=== PATIENT | female | born 1965 | race Caucasian/White ===

== ENCOUNTER 2021-03-15 16:12 | Outpatient (CLI) | payer OTHER, SELFPAY ==
--- NOTE | ~2021-03-15 | XR_ITS ---
EXAMINATION: XR knee RT 3V DATE: 03/15/2021 16:36 INDICATION: Right knee pain. TECHNIQUE: 3 views of right knee were obtained. COMPARISON: None. FINDINGS: Bone alignment is normal. No fracture. There is mild tricompartmental osteoarthritis contra st by marginal osteophytes. No knee joint effusion. IMPRESSION: 1. Mild right knee osteoarthritis. Reviewed, dictated and finalized at location A.
== END 2021-03-15 16:13 | disposition home or self-care (01) ==
PROVIDERS: PCP Internal Medicine; Visit Provider Clinical Nurse Specialist
DX: M17.11 Unilateral primary osteoarthritis, right knee (principal)
CPT/HCPCS: 73562

== ENCOUNTER 2021-04-08 10:32 | Outpatient (CLI) | payer OTHER, SELFPAY ==
[2021-04-08 11:15] LABS: Basophils Absolute Auto 0.1 K/mm3 (0.0-0.1); Basophils Percent Auto 0.7 % (0.2-1.2); Eosinophils Absolute Auto 0.4 K/mm3 (0-0.3); Eosinophils Percent Auto 4.8 % (0-4.4); Hematocrit 43.6 % (37.0-47.0); Hemoglobin 14.2 g/dL (12.0-15.0); Immature Granulocyte Absolute 0.02 K/mm3 (0.00-0.031); Immature Granulocyte Percent A 0.3 % (0-0.5); Lymphocytes Absolute Auto 2.87 K/mm3 (0.9-3.2); Mean Corpuscular HGB Conc 32.6 g/dl (32-36); Mean Corpuscular Volume 85.8 fl (80-100); Monocytes Absolute Auto 0.5 K/mm3 (0.1-0.6); Monocytes Percent Auto 6.8 % (2.6-8.5); Neutrophils Absolute Auto 3.6 K/mm3 (1.3-6.7); Neutrophils Percent Auto 48.4 % (45.5-73.1); Platelet Count Result 189 k/mm3 (150-375); Red Blood Count 5.08 M/mm3 (4.2-5.4); Red Cell Distribution Width 13.7 % (11.5-14.5); White Blood Count 7.4 K/mm3 (4.5-10.0)
[2021-04-08 11:26] LABS: Alanine Aminotransferase 23 U/L (4-35); Albumin Level 4.1 g/dL (3.5-5.1); Alkaline Phosphatase 76 U/L (38-126); Anion Gap 4 mmol/L (8-16); Aspartate Amino Transferase 23 U/L (14-36); Bilirubin,Total 0.4 mg/dL (0.2-1.3); Blood Urea Nitrogen 15 mg/dL (7-17); Calcium 9.3 mg/dL (8.4-10.2); Carbon Dioxide 30 mmol/L (22-30); Chloride 106 mmol/L (98-107); Cholesterol 203 mg/dL (0-200); Estimated Glomerular Filt Rate > 60; Glucose 108 mg/dL (65-105); HDL Direct 53 mg/dL; Potassium 4.2 mmol/L (3.4-5.0); Sodium 140 mmol/L (137-145); Triglycerides 71 mg/dL (<150)
[2021-04-08 11:37] LABS: LDL Cholesterol Direct 105 mg/dL
[2021-04-08 11:56] LABS: Thyroid Stimulating Hormone 0.612 uIU/mL (0.465-4.680)
[2021-04-08 12:10] LABS: Vitamin D 25 Hydroxy 32.6 ng/mL
== END 2021-04-08 10:33 | disposition home or self-care (01) ==
PROVIDERS: PCP Internal Medicine; Visit Provider Clinical Nurse Specialist
DX: R53.83 Other fatigue (principal); I10 Essential (primary) hypertension; E55.9 Vitamin D deficiency, unspecified
CPT/HCPCS: 36415; 80053; 80061; 82306; 84443; 85025

== ENCOUNTER 2021-04-18 09:49 | Outpatient (CLI) | payer OTHER, SELFPAY ==
--- NOTE | 2021-04-21 12:47 | WPDHOLTEREM ---
Holter/Event Monitor Holter/Event Monitor Date of procedure: 04/18/21 Procedure Type: 48 hour holter monitor Indications: Palpitations Conclusion: 1. 48 hour holter monitor on 04/18/21. 2. Predominant rhythm is sinus rhythm. HR range 56-135 bpm; average HR 72 bpm. 3. There are 10 premature supraventricular complexes and 1 supraventricular couplet. No supraventricular tachycardia. 4. There are 3 premature ventricular complexes and 1 ventricular triplet. There is an episode of ventricular tachycardia at 00:33 at 129 bpm lasting 4 beats then 5 beats by a sinus beat. 5. No sinoatrial or atrioventricular blocks. No significant pauses greater than 2 seconds. 6. No symptoms available for correlation.
== END 2021-04-18 09:50 | disposition home or self-care (01) ==
PROVIDERS: PCP Internal Medicine; Visit Provider Clinical Nurse Specialist
DX: R00.2 Palpitations (principal)
CPT/HCPCS: 93225; 93226

== ENCOUNTER 2021-04-25 15:39 | Outpatient (CLI) | payer OTHER, SELFPAY | END 2021-04-25 15:40 | disposition home or self-care (01) | LOC: ANHLAB 15:41 | PROVIDERS: PCP Internal Medicine; Visit Provider Clinical Nurse Specialist | DX: I47.2 Ventricular tachycardia (principal) | CPT/HCPCS: 36415; 83735 ==

== ENCOUNTER 2021-05-27 08:52 | Outpatient (CLI) | payer OTHER, SELFPAY ==
--- NOTE | ~2021-05-27 | MM_ITS ---
EXAMINATION: MM screening claudia BI w hiram HISTORY: Screening TECHNIQUE: Craniocaudal and mediolateral oblique 3-D tomosynthesis images were obtained and synthetic 2-D images were generated. CAD analysis was submitted and interpreted. COMPARISON: No prior mammogram is available for comparison at this institution. BREAST PARENCHYMAL COMPOSITION: There are scattered areas of fibroglandular density. FINDINGS: There is a focal mass in the lower central aspect of the left breast posteriorly. There are no suspicious masses, calcifications or architectural distortion in the right breast to suggest daisy gnancy. IMPRESSION: 1. Left breast mass posteriorly, lower central. 2. Additional mammographic views and possible breast ultrasound are recommended. BI-RADS Category 0: Incomplete: Needs additional imaging evaluation. Reviewed, dictated and finalized at location A. IMPRESSION: 1. Left breast mass posteriorly, lower central. 2. Additional mammographic views and possible breast ultrasound are recommended . BI-RADS Category 0: Incomplete: Needs additional imaging evaluation.
--- NOTE | ~2021-05-27 | DEXA_ITS ---
Bone Density Report Name: Jackie Ceja Age: 56 Sex: Female Ethnicity: White Date of : 1965 Indication: postmenopausal; cancer; Referring Provider: Senait Prieto Study: Bone densitometry was performed. Exam Date: May 27, 2021 Accession number: [id number] Bone Density: Region BMD T-score Z-score Classification AP Spine (L1-L4) 1.210 1.5 2.8 Normal Femoral Neck (Left) 0.897 0.4 1.6 Normal Total Hip (Left) 1.135 1.6 2.4 Normal Total Hip Bilateral Avg 1.126 1.5 2.4 Normal Femoral Neck (Right) 0.937 0.8 2.0 Normal Total Hip (Right) 1.116 1.4 2.3 Normal World Health Organization criteria for BMD impression classify patients as: Normal (T-score at or above -1.0), Osteopenia (T-score between -1.0 and -2.5), or Osteoporosis (T-score at or below -2.5). 10-year Fracture Risk: FRAX not reported because: All T-scores for Spine Total, Hip Total, Femoral Neck at or above -1.0 Clinical Information Provided by Patient: Has used the following medications: HRT (i.e. estrogen/hormone therapy) Has the following medical conditions: Cancer Patient maximum height was 61 Menopause Age: 44 No regular weight bearing exercise Onset of menses at age 9 Number of children 3 Impression: The patient has normal bone mass. Discussion: BONE DENSITY IS ABOVE THE MINIMUM DESIRABLE LEVEL AT ALL SKELETAL SITES TESTED. This patient?s bone mineral density is above the minimum desirable level (T-score -1.0 or better) at all sites measured. The patient should follow a healthful lifestyle (good nutrition with adequate calcium and vitamin D, and appropriate weight-bearing exercise). Follow-Up: Consider repeating this study in 5 years or sooner if there is some new clinical indication. Reported by: SU on 05/27/2021 9:17:00 AM. Reviewed, dictated and finalized at location ABebe YOST
== END 2021-05-27 08:53 | disposition home or self-care (01) ==
LOC: ANHIMG 08:53
PROVIDERS: PCP Internal Medicine; Visit Provider Clinical Nurse Specialist
DX: Z12.31 Encounter for screening mammogram for malignant neoplasm of breast (principal); Z78.0 Asymptomatic menopausal state; R92.8 Other abnormal and inconclusive findings on diagnostic imaging of breast
CPT/HCPCS: 77063; 77067; 77080

== ENCOUNTER 2021-06-14 13:39 | Outpatient (CLI) | payer OTHER, SELFPAY ==
[2021-06-14 14:05] LABS: Basophils Absolute Auto 0.1 K/mm3 (0.0-0.1); Basophils Percent Auto 0.6 % (0.2-1.2); Eosinophils Absolute Auto 0.3 K/mm3 (0-0.3); Eosinophils Percent Auto 3.8 % (0-4.4); Hematocrit 43.2 % (37.0-47.0); Hemoglobin 13.7 g/dL (12.0-15.0); Immature Granulocyte Absolute 0.05 K/mm3 (0.00-0.031); Immature Granulocyte Percent A 0.6 % (0-0.5); Lymphocytes Absolute Auto 2.94 K/mm3 (0.9-3.2); Lymphocytes Percent Auto 36.9 % (18.3-44.2); Mean Corpuscular HGB Conc 31.7 g/dl (32-36); Mean Corpuscular Hemoglobin 28.3 pg (26-34); Mean Corpuscular Volume 89.3 fl (80-100); Mean Platelet Volume 10.1 fl (7.4-10.4); Monocytes Absolute Auto 0.6 K/mm3 (0.1-0.6); Monocytes Percent Auto 7.8 % (2.6-8.5); Neutrophils Percent Auto 50.3 % (45.5-73.1); Platelet Count Result 205 k/mm3 (150-375); Red Blood Count 4.84 M/mm3 (4.2-5.4); Red Cell Distribution Width 14.4 % (11.5-14.5)
== END 2021-06-14 13:40 | disposition home or self-care (01) ==
LOC: ANHSURGERY 13:43
PROVIDERS: PCP Internal Medicine; Visit Provider Obstetrics & Gynecology
DX: N85.2 Hypertrophy of uterus (principal); Z01.818 Encounter for other preprocedural examination
CPT/HCPCS: 36415; 85025; 86850; 86900; 86901

== ENCOUNTER 2021-06-16 00:42 | Day surgery (SDC) | payer OTHER, SELFPAY ==
[2021-06-14 09:12] VITALS: BMI 43.4
--- NOTE | 2021-06-14 11:43 | PM.IMHP ---
H&P: HPI History of Present Illness Date/Time: 06/14/21 11:43 56-year-old multiparous patient admitted for robotic total vaginal hysterectomy bilateral salpingo-oophorectomy. She has pelvic pain enlarged uterus and dyspareunia with known fibroids. Risks and benefits reviewed including but not exclusive of , aspiration pneumonia, bleeding, transfusion, perforation injury to bowel, bladder, ureters, or other internal organs need for open laparotomy. She received the ACOG handout for hysterectomy as well as the [facility] handout. Chief Complaint: enlarged uterus and pelvic pain Review of Systems Review of Systems: All systems reviewed & are unremarkable except as noted in HPI and below PMFSH Past Medical History Medical History Colon cancer HTN (hypertension) Surgical History Surgical History H/O section x2 History of appendectomy History of colon resection Hx of tonsillectomy Family History Family History Mother Heart disease Father Dementia Alzheimer disease Social History Social History Smoking status: Never smoker Alcohol intake: never Substance use type: does not use Spiritual care concerns: No Meds Home Medications and Allergies Home Medications Medication Instructions Recorded Confirmed Type estradiol-norethindrone acet 1 1 tablet PO DAILY 05/08/21 06/14/21 History mg-0.5 mg tablet metoprolol succinate 25 mg 25 mg PO DAILY 05/08/21 06/14/21 History tablet,extended release 24 hr sertraline 50 mg tablet 50 mg PO DAILY #90 tablet 05/08/21 06/14/21 Rx Allergies Allergy/AdvReac Type Severity Reaction Status Date / Time No Known Allergies Allergy Unverified 03/16/16 15:42 Exam Const: General: no acute distress Eyes: General: appearance normal, both eyes and all related structures Neck: Neck: supple and no JVD Thyroid: thyroid normal Resp: Effort & Inspection: normal respiratory effort Auscultation: clear to auscultation bilaterally Cardio: Rate: regular rate Rhythm: regular rhythm GI: Inspection: non-distended GI Palp: Yes Soft to palpation, No Tenderness to palpation present (GI) and No Guarding due to palpation present (GI) Auscultation: normal bowel sounds : External Female Exam: normal external appearance Speculum Exam - Vagina: normal appearance of the vagina Speculum Exam - Cervix: normal appearance of the cervix Bimanual exam- vagina & uterus: enlarged Skin: General skin exam: no rashes or lesions noted Extrem: General: normal to inspection and no edema Psych: Mental Status: mental status grossly normal Affect: normal affect Assessment and Plan Additional Plan impression: Enlarged uterus and pelvic pain Plan: Robotic total vaginal hysterectomy and bilateral salpingo-oophorectomy
[2021-06-16] VITALS (12 sets, daily range): BP systolic 95–126; BP diastolic 61–85; PULSE 52–68; RESP 10–16; TEMP 35.9–36.4; O2SAT 91–99; BMI 41.4
--- NOTE | 2021-06-16 06:00 | WPDHPUPDATE1 ---
History and Physical Update Update Date/Time: 06/16/21 06:00 History and Physical has been reviewed, including an updated exam of the patient. There are NO changes in the patient's condition. Risks, benefits, and alternatives have been discussed and questions answered. Patient agrees to proceed with procedure.
[2021-06-16] MEDS: ACETAMINOPHEN 500 MG TABLET 1000 MG PO (08:32)
[2021-06-16] MEDS: LACTATED RINGERS 1,000 ML 30 ML IV CONT ×2 (08:32→14:24)
[2021-06-16] MEDS: KETOROLAC 15 MG/ML VIAL (*BKC) IV PUSH (08:34)
--- NOTE | 2021-06-16 09:58 | P.PNAN_ITS ---
Anes - Initial Pre Proc Eval Procedure: Operation Date: 06/16/21 09:30 Proposed Procedures p Robotic Assisted Total Vaginal Hysterectomy with Bilateral Salpingo- Oophorectomy - Boubacar Perla MD Date/Time: 06/16/21 09:58 Surgeon: Boubacar Perla MD Pre Op Diagnosis: enlarge uterus, pelvic pain, fibroids Patient Data Age: 56 Gender: F Height: 1.55 m Weight: 99.55 kg Last Vital Signs Temp 97.4 F L 06/16/21 08:17 Pulse 66 06/16/21 08:17 Resp 16 06/16/21 08:17 BP 126/77 06/16/21 08:17 Pulse Ox 99 06/16/21 08:17 Allergies Allergy/AdvReac Type Severity Reaction Status Date / Time No Known Allergies Allergy Unverified 03/16/16 15:42 Home Medications Medication Instructions Recorded Confirmed Type estradiol-norethindrone acet 1 1 tablet PO DAILY 05/08/21 06/14/21 History mg-0.5 mg tablet metoprolol succinate 25 mg 25 mg PO DAILY 05/08/21 06/14/21 History tablet,extended release 24 hr sertraline 50 mg tablet 50 mg PO DAILY #90 tablet 05/08/21 06/14/21 Rx hydrocodone-acetaminophen 1 tablet PO Q4H PRN #30 tablet 06/16/21 Rx Patient hx anesthesia problems: none Family hx anesthesia problems: none PMFSH Past Medical History Medical History Colon cancer HTN (hypertension) Surgical History Surgical History H/O section x2 History of appendectomy History of colon resection Hx of tonsillectomy Family History Family History Mother Heart disease Father Dementia Alzheimer disease Social History Social History Smoking status: Never smoker Alcohol intake: never Substance use type: does not use Living arrangements: with family Spiritual care concerns: No Anes - Eval Final PreProcedure Day of Procedure 06/16/21 09:58 Patient weight: morbidly obese Heart: regular rate and rhythm Lungs: clear to auscultation Airway: Mallampati scale class II Neurological: alert and oriented Last oral intake: >/= 8 hours ASA classification: III Emergent: no Anesthetic plan: proceed Anesthesia type and monitoring: general ETT and standard monitoring Informed Consent: The patient's anesthetic plan and its attendant risks and benefits were discussed with the patient/family/POA. Questions were solicited and answers provided to the satisfaction of the patient/family/POA.
[2021-06-16] MEDS: ceFAZolin 2 GM/D5W 50 ML 2 GM/50 ML BAG IVPB (10:08)
[2021-06-16] MEDS: HEMOSTATIC MATRIX (SURGIFLO with THROMBIN) KIT 2 KIT XX (13:18)
--- NOTE | 2021-06-16 13:37 | W.PM.PROC2 ---
Procedure Note - Detailed Date of Procedure 06/16/21 Pre-op Diagnosis enlarge uterus, pelvic pain, fibroids Post-op Diagnosis same Procedure Performed Robotic total vaginal hysterectomy and salpingo-oophorectomy Surgeon Boubacar Perla MD Anesthesia general Indications this is a 56 year female with large fibroid uterus and pain she had a history of colon resection with expected adhesions. Findings Markedly enlarged uterus with multiple adhesions including small bowel to the anterior abdominal wall colon to the posterior surface of the uterus and left ovary and tube. Description of Procedure the patient was prepped draped in the normal sterile fashion placed in the dorsal lithotomy position. Excellent general trach anesthesia weighted speculum placed in posterior fornix vagina. Anterior lip of the cervix grasped with a single-tooth tenaculum and the uterus sounded to 11cm serial dilatation with fragmented dilators performed followed by passes of the 10. LEIGH ANN and 3. Cold cup. A 16 [place] catheter was placed in the gloves were changed. An a supraumbilical incision made the Veress needle passed in the abdomen. The abdomen filled with CO2 gas [id number]. The 8mm trocar advanced in the abdomen downside visualized no injury seen. Multiple adhesions were seen anteriorly left and right lateral quadrant incisions made 8mm trocars advanced under direct visualization a right upper quadrant incision made the 10mm trocar advanced under direct visualization the robot was docked Attention was turned to the console. Multiple adhesions were seen using sharp dissection with monopolar and bipolar cautery the colon and small bowel that was adherent to the anterior abdominal wall the posterior surface of the uterus and cervix and the left ovary and tube were sharply dissected carefully avoiding injury to the overlying bowel. Once uterus and ovaries could be seen the left fallopian tube was grasped and this was cut and removed. The left round ligament was grasped, burned, cut anteriorly a bladder flap was formed. Sharp dissection was used by layer by layer secondary previous surgery with the bladder markedly adherent to the uterine surface. This was brought to the opposite round ligament which was clamped, burned, cut. Next the left infundibulopelvic structure was skeletonized remove the ovary and it was very small and was clamped, burned, cut and brought to the level of previously cut round ligament. The infundibulopelvic structure on the right was skeletonized. This was clamped, burned, cut and brought to the level of previously cut round ligament. Multiple adhesions were seen in the left cardinal broad ligaments were serially skeletonized down lateral edge of the uterus relieving adhesions clamping cutting burning until the uterine vessels could be seen on left these were large and tortuous in individually clamped, burned, cut. In like fashion the cardinal and broad ligaments on the left were serially skeletonized clamped, burned, cut and brought down lateral edge of the cervix until the uterine vessels could be seen on the right these were serially clamped, burned, cut. Once it appeared there was hemostasis a colpotomy incision was made in the cervix uterus ovaries and tubes removed through the vagina. The a portion of the ovary was suspected to be in the abdomen was cervix for some time but could not be located. The vagina was then closed with continuous running 0V lock from lateral edge lateral edge. There was a fair amount of bloody surface and surgeon seal was placed over the top with hemostasis. The vagina was was noted to have some small amount of bleeding and expects Thatch was undertaken there after undocking the robot. A small lateral laceration was noted and it was superficial and was cauterized and then for safe safety sake packing was placed. The instruments removed. Incisions were closed with 4 Monocryl and glue. The patient went to recovery in satisf
--- NOTE | 2021-06-16 13:48 | SUR.OPER ---
noted vaginal bleeding Dr Dong called to OR to assess 13:49.
--- NOTE | 2021-06-16 13:49 | SUR.OPER ---
1 full length vaginal packing soaked in red bright blood and removed (3 yards)
--- NOTE | 2021-06-16 14:34 | PM.GYNPNOP ---
MEMORY CARE PROGRAM DIRECTOR - A/P Postoperative Procedures: Procedures Operation Date: 06/16/21 09:30 Actual Procedure Side Surgeon p Robotic Assisted Total Vaginal Hysterectomy with Bilateral Salpingo-[id number],Extensive Adhesolysis Boubacar Perla MD s vaginal cuff repair Not Applicable Boubacar Perla MD Time Spent With Patient Time: Total time spent is greater than 50% in coordination of care (as documented) at patient's floor/unit and/or counseling patient: Time with patient: less than 15 minutes MEMORY CARE PROGRAM DIRECTOR- PN:Subj Post-Op Subjective Date/time seen: 06/16/21 14:34 placed two figure 8 sutures in ruq of vagina as a small tear was noted MEMORY CARE PROGRAM DIRECTOR - PN: Obj Data Vital Signs Vital Signs: Vital Signs - 24 hr 06/16/21 08:17 Temperature 97.4 F L Pulse Rate 66 Respiratory Rate 16 Blood Pressure 126/77 Pulse Oximetry 99 Intake/Output Intake/Output: Intake & Output 06/13/21 06/14/21 06/15/21 06/16/21 23:59 23:59 23:59 23:59 Intake Total 50 Balance 50 Meds/Results Medications: Active Medications Generic Name Dose Route Start Last Admin Trade Name Freq PRN Reason Stop Dose Admin Fentanyl Citrate 25 mcg 06/16/21 10:02 Fentanyl Citrate Inj (*Crx) 100 Mcg/2 Ml Vial IV PUSH Q2M PRN Pain Hydromorphone HCl 0.25 mg 06/16/21 10:02 Hydromorphone Hcl Inj (*Crx) 1 Mg/Ml Syr IV PUSH Q5M PRN Pain Lactated Ringer's 1,000 mls @ 30 mls/hr 06/15/21 14:55 06/16/21 08:32 Lr - Lactated Ringers Iv IV CONT 30 mls/hr .Q24H TONI Administration Lactated Ringer's 1,000 mls @ 30 mls/hr 06/16/21 10:05 Lr - Lactated Ringers Iv IV CONT .Q24H TONI Ondansetron HCl 4 mg 06/16/21 10:02 Ondansetron Inj 4 Mg/2 Ml Vial IV PUSH ONCE PRN Nausea
--- NOTE | 2021-06-16 14:48 | SUR.OPER ---
EBL TOTAL 350ML.
[2021-06-16] MEDS: DEXTROSE 5%/LACTATED RINGERS 1,000 ML 125 ML IV CONT (16:37)
[2021-06-16] MEDS: KETOROLAC 30 MG/ML VIAL (*BKC) IV PUSH (16:37)
--- NOTE | 2021-06-16 20:15 | PC.NURSE ---
Dr. Bandar Johnston called to check in on the patient and the pharmacy had ordered a creatinine EGFR lab to be drawn, per MD the lab is not needed. RN to cancel the order.
--- NOTE | 2021-06-16 20:48 | PC.NURSE ---
1618-This patient, Jackie Ceja, was admitted to OB 2nd Floor Room 292-00. Patient/family oriented to hospital policies and general routines including ID bracelet, bed and alarms, visiting hours, pain management, procedures, bathroom and other care routines, personal items, smoking policy, room service/diet, and visiting hours. Information on how to activate the Rapid Response Team has been discussed. Patient/Family are encouraged to report perceived risks to care and to ask questions if they do not understand what they are told or what they should do.
[2021-06-16] MEDS: IBUPROFEN 600 MG TABLET PO (23:11)
[2021-06-16] MEDS: HYDROcodone/acetaminophen (*CRX) 5-325 MG TABLET 1 TAB PO (23:12)
[2021-06-17] MEDS: HYDROcodone/acetaminophen (*CRX) 10-325 MG TABLET 1 TAB PO ×3 (02:31→11:37)
[2021-06-17] MEDS: SIMETHICONE 80 MG TAB.CHEW PO (02:31)
[2021-06-17 05:00] VITALS: BP 104/54; PULSE 80; RESP 16; TEMP 36.6; O2SAT 97
[2021-06-17] MEDS: IBUPROFEN 600 MG TABLET PO ×2 (05:01→11:37)
[2021-06-17 06:07] LABS: Basophils Percent Auto 0.2 % (0.2-1.2); Eosinophils Percent Auto 0.1 % (0-4.4); Hematocrit 32.4 % (37.0-47.0); Hemoglobin 10.2 g/dL (12.0-15.0); Immature Granulocyte Absolute 0.05 K/mm3 (0.00-0.031); Immature Granulocyte Percent A 0.4 % (0-0.5); Lymphocytes Absolute Auto 2.78 K/mm3 (0.9-3.2); Mean Corpuscular HGB Conc 31.5 g/dl (32-36); Mean Corpuscular Hemoglobin 28.3 pg (26-34); Mean Corpuscular Volume 89.8 fl (80-100); Mean Platelet Volume 10.5 fl (7.4-10.4); Monocytes Percent Auto 7.1 % (2.6-8.5); Neutrophils Percent Auto 72.2 % (45.5-73.1); Platelet Count Result 194 k/mm3 (150-375); Red Blood Count 3.61 M/mm3 (4.2-5.4); Red Cell Distribution Width 14.6 % (11.5-14.5); White Blood Count 13.9 K/mm3 (4.5-10.0)
[2021-06-17 08:45] VITALS: BP 98/68; PULSE 74; RESP 20; TEMP 37.1; O2SAT 94
--- NOTE | 2021-06-17 10:31 | PM.GYNPNOP ---
RURAL HEALTH CONSULTANT - A/P Postoperative Procedures: Procedures Operation Date: 06/16/21 09:30 Actual Procedure Side Surgeon p Robotic Assisted Total Vaginal Hysterectomy with Bilateral Salpingo-[id number],Extensive Adhesolysis Boubacar Perla MD s vaginal cuff repair Not Applicable Boubacar Perla MD A: POD#1, doing well. P: Home to f/u 2 weeks. Time Spent With Patient Time with patient: less than 15 minutes RURAL HEALTH CONSULTANT- PN:Subj Post-Op Subjective Date/time seen: 06/17/21 10:31 Interval history: Pain OK. Tolerating diet. Would like to go home. Exam Narrative: Exam Narrative: AVSS I/O OK ABD soft, nontender. Incisions c/d/i. EXT nontender Pelvic: Packing removed. Hemostasis excellent. RURAL HEALTH CONSULTANT - PN: Obj Data Vital Signs Vital Signs: Vital Signs - 24 hr 06/16/21 14:24 06/16/21 14:35 06/16/21 14:49 Temperature 36.4 C L Pulse Rate 52 L 55 L 55 L Respiratory Rate 16 14 14 Blood Pressure 109/85 105/67 98/78 L Pulse Oximetry 91 97 97 06/16/21 15:00 06/16/21 15:16 06/16/21 15:30 Temperature Pulse Rate 53 L 55 L 56 L Respiratory Rate 11 L 10 L 13 Blood Pressure 102/61 103/67 95/61 L Pulse Oximetry 95 94 93 06/16/21 15:45 06/16/21 16:25 06/16/21 17:00 Temperature 35.9 C L Pulse Rate 55 L 55 L 55 L Respiratory Rate 12 16 16 Blood Pressure 106/72 107/61 Pulse Oximetry 96 97 97 06/16/21 20:20 06/16/21 23:10 06/17/21 05:00 Temperature 36.1 C L 36.4 C 36.6 C Pulse Rate 59 L 68 80 Respiratory Rate 16 16 16 Blood Pressure 99/63 L 112/73 104/54 L Pulse Oximetry 97 96 97 06/17/21 08:45 Temperature 37.1 C Pulse Rate 74 Respiratory Rate 20 Blood Pressure 98/68 L Pulse Oximetry 94 Intake/Output Intake/Output: Intake & Output 06/14/21 06/15/21 06/16/21 06/17/21 23:59 23:59 23:59 23:59 Intake Total 1750 500 Output Total 590 600 Balance 1160 -100 Meds/Results Medications: Active Medications Generic Name Dose Route Start Last Admin Trade Name Freq PRN Reason Stop Dose Admin Hydrocodone Bitart/Acetaminophen 1 tab 06/16/21 16:06 06/16/21 23:12 Hydrocodone/Acetaminophen (*Crx) 5-325 Mg Tablet PO 1 tab Q3H PRN Administration Pain Rated 5 or Less Hydrocodone Bitart/Acetaminophen 1 tab 06/16/21 16:06 06/17/21 05:02 Hydrocodone/Acetaminophen (*Crx) 10-325 Mg Tablet PO 1 tab Q3H PRN Administration Pain Rated 6 or Greater Docusate Sodium 100 mg 06/16/21 17:00 06/16/21 16:38 Docusate Sodium 100 Mg Capsule PO Not Given BID TONI Enoxaparin Sodium 40 mg 06/17/21 09:00 Enoxaparin 40 Mg/0.4 Ml Syringe SUB-Q DAILY TONI Dextrose/Lactated Ringer's 1,000 mls @ 125 mls/hr 06/16/21 16:06 06/16/21 23:11 Dextrose 5%/Lactated Ringers IV CONT Infused .Q8H TONI Infusion Ibuprofen 600 mg 06/16/21 16:06 06/17/21 05:01 Ibuprofen 600 Mg Tablet PO 600 mg Q6H PRN Administration Cramping Ketorolac Tromethamine 30 mg 06/16/21 16:06 06/16/21 16:37 Ketorolac 30 Mg/Ml Vial (*Bkc) IV PUSH 06/21/21 16:07 30 mg Q6H PRN Administration Pain Rated 4-6 Morphine Sulfate 4 mg 06/16/21 16:06 Morphine Sulfate (*Crx) 4 Mg/Ml Inj IV PUSH Q4H PRN Severe breakthrough pain Naloxone HCl 0.1 mg 06/16/21 16:06 Naloxone Hcl 0.4 Mg/Ml Vial IV PUSH Q2M PRN Respiratory rate less than 10 Ondansetron HCl 4 mg 06/16/21 16:06 Ondansetron Inj 4 Mg/2 Ml Vial IV PUSH Q6H PRN Nausea And Vomiting Simethicone 80 mg 06/16/21 16:06 06/17/21 02:31 Simethicone 80 Mg Tab.Chew PO 80 mg Q2H PRN Administration Gas Labs CBC & Chem 7: 06/17/21 05:09 Labs: Laboratory Results - last 24 hr 06/17/21 05:09 WBC 13.9 H RBC 3.61 L Hgb 10.2 L D Hct 32.4 L MCV 89.8 MCH 28.3 MCHC 31.5 L RDW 14.6 H Plt Count 194 MPV 10.5 H Immature Gran % (Auto) 0.4 Neut % (Auto) 72.2 Lymph % (Auto) 20.0 [place] % (Auto) 7.1 Eos % (Auto) 0.1 Baso % (Auto) 0.2 Lym
--- NOTE | 2021-06-17 11:35 | WPDANLDNPN2 ---
Anes-Prog Note L&D-Neuraxial Date/Time: 06/17/21 11:35 Neuraxial medications: intrathecal PF morphine Opiod-related complaints: none Patient feedback: Patient satisfied with post-operative pain management.
--- NOTE | 2021-06-17 11:36 | P.PNAN_ITS ---
Anes - Prog Note Post-Op Date/Time: 06/17/21 11:36 Cardiovascular status: normal Respiratory status: normal Airway patency: baseline Mental status: baseline Post-Op hydration status: normal Vital Signs: Last Vital Signs Temp 37.1 C 06/17/21 08:45 Pulse 74 06/17/21 08:45 Resp 20 06/17/21 08:45 BP 98/68 L 06/17/21 08:45 Pulse Ox 94 06/17/21 08:45 Pain Score (VAS): 0 I/O: Intake & Output 06/16/21 06/17/21 06/17/21 23:59 07:59 15:59 Intake Total 1400 500 240 Output Total 550 600 50 Balance 850 -100 190 Laboratory Tests 06/17/21 05:09 06/17/21 05:09 WBC 13.9 H RBC 3.61 L Hgb 10.2 L D Hct 32.4 L MCV 89.8 MCH 28.3 MCHC 31.5 L RDW 14.6 H Plt Count 194 MPV 10.5 H Immature Gran % (Auto) 0.4 Neut % (Auto) 72.2 Lymph % (Auto) 20.0 [place] % (Auto) 7.1 Eos % (Auto) 0.1 Baso % (Auto) 0.2 Lymph # (Auto) 2.78 [place] # (Auto) 1.0 H Eos # (Auto) 0.0 Baso # (Auto) 0.0 Abs Immat Gran (auto) 0.05 H Absolute Neuts (auto) 10.0 H Absolute Nucleated RBC 0.0 Nucleated RBC % 0.0 Post-procedural complaints: none Patient Feedback: Patient satisfied with anesthetic care.
[2021-06-17] MEDS: DOCUSATE SODIUM 100 MG CAPSULE PO (11:37)
[2021-06-17] MEDS: ENOXAPARIN 40 MG/0.4 ML SYRINGE SUB-Q (11:37)
== END 2021-06-17 11:54 | disposition home or self-care (01) ==
LOC: ANHSURGERY 07:23 → ANHOB2 16:08
PROVIDERS: PCP Internal Medicine; Visit Provider Obstetrics & Gynecology
PROC: (CPT 58552; principal; 2021-06-16 09:30)
PROC: (CPT 57260; 2021-06-16 09:30)
DX: R10.2 Pelvic and perineal pain (principal); N73.6 Female pelvic peritoneal adhesions (postinfective); D25.9 Leiomyoma of uterus, unspecified; N83.8 Other noninflammatory disorders of ovary, fallopian tube and broad ligament; N83.292 Other ovarian cyst, left side; I10 Essential (primary) hypertension; Z85.038 Personal history of other malignant neoplasm of large intestine; Z90.49 Acquired absence of other specified parts of digestive tract; E66.01 Morbid (severe) obesity due to excess calories; Z68.41 Body mass index [BMI] 40.0-44.9, adult
CPT/HCPCS: 58552; S2900; 36415; 85025; 88307; 99199; A9270; J0690; J1100; J1170; J1650; J1885; J2250; J2704; J2710; J3010; J7030; J7120; J7121

== ENCOUNTER 2021-06-20 13:28 | Outpatient (CLI) | payer OTHER, SELFPAY ==
--- NOTE | ~2021-06-20 | MMUS_ITS ---
EXAMINATION: MM diagnostic mammo unilat LT, US breast LT limited HISTORY: Follow-up left breast mass TECHNIQUE: Additional 3-D tomosynthesis images of the left breast were performed and synthetic 2-D im ages were generated. CAD analysis was submitted and interpreted. High resolution Limited left breast ultrasound was performed. COMPARISON: 05/27/2021 BREAST PARENCHYMAL COMPOSITION: Breast composed of scattered areas of fibroglandular density. FINDINGS: MAMMOGRAPHIC FINDINGS: There is a 1 cm radiolucent mass in the lower outer quadrant of the left breast near the chest wall. No architectural distortion or suspicious calcifications. ULTRASOUND: Limited left breast ultrasound: There is normal heterogeneous echotexture without evidence for focal solid or cystic mass to correspond to the mammographic abnormality. IMPRESSION: 1. Left breast mass, lower outer quadrant near the chest wall, likely benign given the central lucenc y and circumscribed margins. No definite sonographic correlate. 2. Recommend 6 month follow-up diagnostic left mammogram and possible ultrasound. BI-RADS category 3, probably benign findings. Reviewed, dictated and finalized at location A. IMPRESSION: 1. Left breast mass, lower outer quadrant near the chest wall, likely benign gi neelam the central lucency and circumscribed margins. No definite sonographic antoinette elate. 2. Recommend 6 month follow-up diagnostic left mammogram and possible ultrasoun d. BI-RADS category 3, probably benign findings.
== END 2021-06-20 13:29 | disposition home or self-care (01) ==
LOC: ANHIMG 13:30
PROVIDERS: PCP Internal Medicine; Visit Provider Internal Medicine
DX: R92.8 Other abnormal and inconclusive findings on diagnostic imaging of breast (principal)
CPT/HCPCS: 76642; 77065

== ENCOUNTER 2023-07-29 10:21 | Outpatient (CLI) | payer OTHER, SELFPAY ==
[2023-07-29 13:44] LABS: Basophils Absolute Auto 0.1 K/mm3 (0.0-0.1); Eosinophils Absolute Auto 0.2 K/mm3 (0-0.3); Eosinophils Percent Auto 2.3 % (0-4.4); Hematocrit 43.9 % (37.0-47.0); Hemoglobin 13.9 g/dL (12.0-15.0); Immature Granulocyte Absolute 0.03 K/mm3 (0.00-0.031); Immature Granulocyte Percent A 0.4 % (0-0.5); Lymphocytes Absolute Auto 2.98 K/mm3 (0.9-3.2); Lymphocytes Percent Auto 36.3 % (18.3-44.2); Mean Corpuscular HGB Conc 31.7 g/dl (32-36); Mean Corpuscular Hemoglobin 27.8 pg (26-34); Mean Corpuscular Volume 87.8 fl (80-100); Mean Platelet Volume 10.3 fl (7.4-10.4); Monocytes Absolute Auto 0.7 K/mm3 (0.1-0.6); Monocytes Percent Auto 8.3 % (2.6-8.5); Neutrophils Absolute Auto 4.2 K/mm3 (1.3-6.7); Neutrophils Percent Auto 51.7 % (45.5-73.1); Platelet Count Result 234 k/mm3 (150-375); Red Cell Distribution Width 14.1 % (11.5-14.5); White Blood Count 8.2 K/mm3 (4.5-10.0)
[2023-07-29 14:55] LABS: Vitamin D 25 Hydroxy 32.6 ng/mL
[2023-07-29 17:59] LABS: Iron 79 ug/dL (37-170)
[2023-07-29 18:08] LABS: Percent Iron Saturation 19 % (20-50)
[2023-07-29 18:51] LABS: Alanine Aminotransferase 37 U/L (6-35); Albumin Level 4.3 g/dL (3.5-5.1); Alkaline Phosphatase 96 U/L (38-126); Anion Gap 5 mmol/L (8-16); Aspartate Amino Transferase 32 U/L (14-36); Bilirubin,Total 0.4 mg/dL (0.2-1.3); Blood Urea Nitrogen 16 mg/dL (7-17); Calcium 9.4 mg/dL (8.4-10.2); Carbon Dioxide 31 mmol/L (22-30); Chloride 101 mmol/L (98-107); Cholesterol 200 mg/dL (0-200); Estimated Glomerular Filt Rate > 60; Glucose 92 mg/dL (65-110); HDL Direct 59 mg/dL; Sodium 137 mmol/L (137-145); Triglycerides 104 mg/dL (<150)
[2023-07-29 19:04] LABS: LDL Cholesterol Direct 106 mg/dL
[2023-07-29 19:55] LABS: Folic Acid 7.1 ng/mL (2.76->20)
== END 2023-07-29 10:22 | disposition home or self-care (01) ==
LOC: ANHGOSHLAB 10:24
PROVIDERS: PCP Internal Medicine; Visit Provider Nurse Practitioner
DX: F41.9 Anxiety disorder, unspecified (principal); D64.9 Anemia, unspecified; E55.9 Vitamin D deficiency, unspecified; Z13.220 Encounter for screening for lipoid disorders; I10 Essential (primary) hypertension
CPT/HCPCS: 36415; 80053; 80061; 82306; 82607; 82728; 82746; 83540; 83550; 84443; 85025

== ENCOUNTER 2023-08-07 12:29 | Outpatient (CLI) | payer OTHER, SELFPAY ==
--- NOTE | ~2023-08-07 | MMUS_ITS ---
EXAMINATION: MM diagnostic claudia BI w hiram, US breast BI limited HISTORY: Lower outer quadrant left breast mass near chest wall, likely benign, reported on 06/20/2021 diagnostic left mammogram and limited left breast ultrasound examinations. Screening. TECHNIQUE: ML, MLO and CC 3-D tomosynthesis images of both breasts were performed and synthetic 2-D i mages were generated. Bilateral magnification views. CAD analysis was submitted and interpreted. High resolution bilateral upper outer quadrant breast ultrasound was performed. COMPARISON: 06/20/2021 left diagnostic mammogram and limited left breast ultrasound 05/27/2021 bilateral screening mammogram BREAST PARENCHYMAL COMPOSITION: There are scattered areas of fibroglandular density. FINDINGS: MAMMOGRAPHIC FINDINGS: There are scattered bilateral calcifications particularly some punctate microcalcifications in the up per outer quadrants and occasional calcified microhematomas on the right. No suspicious mass, architectural distortion, skin thickening or retraction of either breast is detec azeb. ULTRASOUND: Bilateral upper outer quadrant ultrasound imaging reveals no suspicious mass or shadowing. No other s ignificant sonographic abnormality is noted. IMPRESSION: 1. Benign findings; no mammographic or sonographic evidence of malignancy 2. Routine annual mammographic screening is recommended BI-RADS Category 2: Benign finding(s). Reviewed, dictated and finalized at location A. IMPRESSION: 1. Benign findings; no mammographic or sonographic evidence of malignancy 2. Routine annual mammographic screening is recommended BI-RADS Category 2: Benign finding(s).
== END 2023-08-07 12:30 | disposition home or self-care (01) ==
LOC: ANHIMG 12:30
PROVIDERS: PCP Internal Medicine; Visit Provider Nurse Practitioner
DX: R92.8 Other abnormal and inconclusive findings on diagnostic imaging of breast (principal)
CPT/HCPCS: 76642; 77062; 77066; G0279

== ENCOUNTER 2024-02-12 09:47 | Outpatient (CLI) | payer OTHER, SELFPAY ==
--- NOTE | 2024-02-20 17:08 | WPDHOMESLEEP ---
Sleep Study - Home Unattended Date of Study: 02/12/24 Ordering Provider: Ramos Philippe MD Interpreting Provider: Petra Armendariz MD Height: 1.55 m Weight: 108.862 kg Body Mass Index: 45.3 Neck Circumference (inches): 17.5 [place]: 15 Reason for Sleep Study Hypersomnolence Sleep History Jackie Ceja is a 58-year-old woman with hypersomnolence. She has a history of sleep apnea and has snoring. She occasionally wakes at night with heartburn, belching or coughing.??She constantly snores, and it is always loud enough that others complain. She constantly has trouble sleeping when she has a cold. She never wakes up gasping for breath during the night. She occasionally has breathing problems at night reported to her by others. She constantly sweats excessively at night. She occasionally notices her heart pounding or beating irregularly during the night. She occasional falls asleep involuntarily, however she never falls asleep while driving. She rarely experiences loss of muscle tone with strong emotion. She rarely feels paralyzed on waking or falling asleep. She occasionally experiences vivid dreams upon waking or falling asleep. She never feels afraid of going to sleep. She rarely has nightmares. She occasionally recalls her dreams. She constantly has thoughts racing through her mind. She occasionally feels sad or depressed. She occasionally feels anxiety. She occasionally notices parts of her body jerk. She rarely kicks during the night. She rarely feels crawling or aching feelings in her legs. She occasionally feels leg pain at night. She never has morning jaw pain. She does not report grind her teeth at night. She occasionally feels bothered by pain during the day, is occasionally awakened by pain during the night. She constantly wakes up feeling stiff in the morning, frequently wakes feeling sore or achy in the morning. She occasionally awakens with pain in her neck, spine, or joints. She reports memory problems, concentration difficulties, headaches, palpitations, she takes antacids regularly and she has difficulties with insomnia. Normal bedtime is between 3:00 p.m. and 4:00 p.m., typically waking between 2 and 3 times in order to urinate then she returns to sleep in it and just a few minutes. Her normal wake time is 11:00 p.m.. On days she is not working, her bedtime is between midnight and 1:00 a.m. and her wake time is between 9:00 a.m. and 10:00 a.m.. She works midnight shift during the week. She gets between 4 and 7 hours of sleep depending on the night. She takes naps in the afternoon or evening. On occasion, a short nap lasting 10-15 minutes is refreshing. She is often tired on waking. She feels better in the evening compared to other times of day. Habits:??Tobacco: Never smoker Caffeine: 3-4 servings per day. Alcohol: None Recreational substances: none PMFSH Past Medical History Medical History (Updated 03/05/24 @ 10:40 by Petra Armendariz MD) Colon cancer HTN (hypertension) Obstructive sleep apnea Surgical History Surgical History H/O section x2 H/O: hysterectomy History of appendectomy History of colon resection Hx of tonsillectomy Family History Family History Mother Heart disease Father Dementia Alzheimer disease Social History Social History (Updated 07/29/23 @ 09:[address] [facility]) Social History: Caffeine-tea/coffee Smoking status: Never smoker Alcohol intake: never Substance use type: does not use Living arrangements: with family Spiritual care concerns: No Medications Home Medications Medication Instructions Recorded Confirmed Type metoprolol succinate 25 mg 25 mg PO DAILY 05/08/21 07/29/23 History tablet,extended release 24 hr multivitamin 1 tablet PO DAILY 07/19/22 07/29/23 History semaglutide (weight loss) 0.25 0.25 m
--- NOTE | 2024-03-05 10:44 | WPDSLEEPSTUD ---
Sleep Study Date of Study: 02/12/24 Ordering Provider: Ramos Philippe MD Interpreting Physician: Petra Armendariz MD Sleep Study Type: Polysomnogram Height: 1.55 m Weight: 108.862 kg Body Mass Index: 45.3 Neck Circumference (inches): 17.5 [place]: 15 Reason for Sleep Study Hypersomnolence, snoring; has a history of mask difficulties, returns for a split night study because she decided she wants treatment. Her gum remover is treating her for palpitations, nonsustained ventricular tachycardia, discussed with her the values of re-testing. Sleep History Jackie Ceja is a 58-year-old woman with hypersomnolence and snoring. She has a history of sleep apnea with difficulties tolerating CPAP masks. She occasionally wakes at night with heartburn, belching or coughing.??She constantly snores, and it is always loud enough that others complain. She constantly has trouble sleeping when she has a cold. She never wakes up gasping for breath during the night. She occasionally has breathing problems at night reported to her by others. She constantly sweats excessively at night. She occasionally notices her heart pounding or beating irregularly during the night. She occasional falls asleep involuntarily, however she never falls asleep while driving. She rarely experiences loss of muscle tone with strong emotion. She rarely feels paralyzed on waking or falling asleep. She occasionally experiences vivid dreams upon waking or falling asleep. She never feels afraid of going to sleep. She rarely has nightmares. She occasionally recalls her dreams. She constantly has thoughts racing through her mind. She occasionally feels sad or depressed. She occasionally feels anxiety. She occasionally notices parts of her body jerk. She rarely kicks during the night. She rarely feels crawling or aching feelings in her legs. She occasionally feels leg pain at night. She never has morning jaw pain. She does not report grind her teeth at night. She occasionally feels bothered by pain during the day, is occasionally awakened by pain during the night. She constantly wakes up feeling stiff in the morning, frequently wakes feeling sore or achy in the morning. She occasionally awakens with pain in her neck, spine, or joints. She reports memory problems, concentration difficulties, headaches, palpitations, she takes antacids regularly and she has difficulties with insomnia. Normal bedtime is between 3:00 p.m. and 4:00 p.m., typically waking between 2 and 3 times in order to urinate then she returns to sleep in it and just a few minutes. Her normal wake time is 11:00 p.m.. On days she is not working, her bedtime is between midnight and 1:00 a.m. and her wake time is between 9:00 a.m. and 10:00 a.m.. She works midnight shift during the week. She gets between 4 and 7 hours of sleep depending on the night. She takes naps in the afternoon or evening. On occasion, a short nap lasting 10-15 minutes is refreshing. She is often tired on waking. She feels better in the evening compared to other times of day. Habits:??Tobacco: Never smoker Caffeine: 3-4 servings per day. Alcohol: None Recreational substances: none PMFSH Past Medical History Medical History (Updated 03/05/24 @ 11:15 by Petra Armendariz MD) Colon cancer HTN (hypertension) Obstructive sleep apnea Surgical History Surgical History (Reviewed 07/29/23 @ 09:35 by Martine Ulloa [facility]) H/O section x2 H/O: hysterectomy History of appendectomy History of colon resection Hx of tonsillectomy Family History Family History (Reviewed 07/29/23 @ 09:35 by Martine Ulloa [facility]) Mother Heart disease Father Dementia Alzheimer disease Social History Social History (Updated 07/29/23 @ 09:44 by Martine Ulloa [facility]) Social History: Caffeine-tea/coffee Smoking status: Never smoker Alcohol intake: never Substance use type: does not use Living arrangements: with family Spiritual care conc
[2024-03-05 11:12] VITALS: BMI 45.3
== END 2024-02-12 16:48 | disposition home or self-care (01) ==
LOC: ANHCSM 09:48
PROVIDERS: PCP Internal Medicine; Visit Provider Internal Medicine Cardiovascular Disease
DX: G47.33 Obstructive sleep apnea (adult) (pediatric) (principal)
CPT/HCPCS: 95810

== ENCOUNTER 2024-08-12 08:29 | Outpatient (CLI) | payer OTHER, SELFPAY ==
[2024-08-12 19:37] LABS: Basophils Absolute Auto 0.1 K/mm3 (0.0-0.1); Basophils Percent Auto 0.7 % (0.2-1.2); Eosinophils Absolute Auto 0.2 K/mm3 (0-0.3); Eosinophils Percent Auto 2.3 % (0-4.4); Hematocrit 44.2 % (37.0-47.0); Hemoglobin 13.9 g/dL (12.0-15.0); Immature Granulocyte Absolute 0.02 K/mm3 (0.00-0.031); Immature Granulocyte Percent A 0.3 % (0-0.5); Lymphocytes Absolute Auto 2.73 K/mm3 (0.9-3.2); Lymphocytes Percent Auto 37.5 % (18.3-44.2); Mean Corpuscular HGB Conc 31.4 g/dl (32-36); Mean Corpuscular Hemoglobin 28.3 pg (26-34); Mean Corpuscular Volume 89.8 fl (80-100); Mean Platelet Volume 10.7 fl (7.4-10.4); Monocytes Absolute Auto 0.6 K/mm3 (0.1-0.6); Monocytes Percent Auto 8.2 % (2.6-8.5); Neutrophils Absolute Auto 3.7 K/mm3 (1.3-6.7); Platelet Count Result 212 k/mm3 (150-375); Red Blood Count 4.92 M/mm3 (4.2-5.4); White Blood Count 7.3 K/mm3 (4.5-10.0)
[2024-08-12 21:20] LABS: Alanine Aminotransferase 25 U/L (6-35); Albumin Level 3.9 g/dL (3.5-5.1); Alkaline Phosphatase 84 U/L (38-126); Anion Gap 9 mmol/L (4-12); Aspartate Amino Transferase 34 U/L (14-36); Bilirubin,Total 0.5 mg/dL (0.2-1.3); Blood Urea Nitrogen 15 mg/dL (7-17); Calcium 9.4 mg/dL (8.4-10.2); Carbon Dioxide 27 mmol/L (22-30); Chloride 101 mmol/L (98-107); Cholesterol 192 mg/dL (0-200); Estimated Glomerular Filt Rate > 60; Glucose 77 mg/dL (65-110); HDL Direct 56 mg/dL; Potassium 4.5 mmol/L (3.4-5.0); Sodium 137 mmol/L (137-145); Triglycerides 86 mg/dL (<150)
[2024-08-12 21:23] LABS: Vitamin D 25 Hydroxy 31.4 ng/mL
[2024-08-12 21:31] LABS: LDL Cholesterol Direct 101 mg/dL
[2024-08-12 21:49] LABS: Thyroid Stimulating Hormone 0.558 uIU/mL (0.465-4.680)
== END 2024-08-12 08:30 | disposition home or self-care (01) ==
LOC: ANHGOSHLAB 08:30
PROVIDERS: PCP Internal Medicine; Visit Provider Nurse Practitioner
DX: D64.9 Anemia, unspecified (principal); E55.9 Vitamin D deficiency, unspecified; I10 Essential (primary) hypertension
CPT/HCPCS: 36415; 80053; 80061; 82306; 84443; 85025

== ENCOUNTER 2024-08-19 15:17 | Outpatient (CLI) | payer OTHER, SELFPAY ==
--- NOTE | ~2024-08-19 | US_ITS ---
Soft tissue in the area under the right breast.\ ULTRASOUND. Ordering provider: Alma Sun NP History: . R22.9 - Localized swelling, mass and lump, unspecified . Comparison: None. FINDINGS/impression: 1.2 x 1.4 x 1.2 cm mixed echogenicity soft tissue lesion with skin tract. No color flow seen. Differ ential include infectious process and less likely hematoma. Clinical correlation and follow-up advise d. Reviewed, dictated and finalized at location A.
== END 2024-08-19 15:18 | disposition home or self-care (01) ==
LOC: GOSHIMG 15:18
PROVIDERS: PCP Internal Medicine; Visit Provider Nurse Practitioner
DX: R22.9 Localized swelling, mass and lump, unspecified (principal)
CPT/HCPCS: 76604

== ENCOUNTER 2024-10-12 01:16 | Day surgery (SDC) | payer OTHER, SELFPAY ==
[2024-10-05 10:33] VITALS: BMI 37.7
--- NOTE | 2024-10-05 10:39 | PC.NURSE ---
Report to the Outpatient Waiting Room, entrance under the green pavilion located off [facility], at time _1230_ on date _[id number]_. Planned Procedure Time: _230pm_.? Time changes happen often and if your time is changed the preop area will call you the afternoon before. - You and your visitor will be asked to self-screen and do not enter if you have any COVID symptoms. Please call surgeon if you need to reschedule. - A mask is optional within the hospital at this time. Patients may have clear liquids (water, carbonated beverages, clear teas, apple juice) until 3 hours prior to surgery with a maximum of 20 ounces. - No food from midnight until time of surgery and no smoking Take only the following medications with a SIP of water on the morning of surgery: ____None DO NOT STOP ANY OF YOUR OTHER PRESCRIPTION MEDICATIONS PRIOR TO SURGERY EXCEPT THE FOLLOWING Medications to discontinue per physician Wegovy___ Date to take last dose___Take no more until after surgery.___ Please no make-up, nail moldovan, hairspray, perfume, deodorant, or body powder the day of surgery.? No jewelry (including any body piercings) or valuables the day of surgery, leave them at home.? Please take a shower or bath the night before, or the morning of, surgery with an antibacterial soap.? Wear comfortable, loose fitting clothing.? - Jewelry must be removed prior to entering the operating room.? Rings and piercings that are not removed may be cut off. - The hospital will not accept responsibility for valuables.? - Please leave all valuables, including medications, at home the day of surgery. If you are going home after surgery, a licensed moving van driver must drive you home.? - NO public transportation without another adult if you receive anesthesia. - We recommend that an adult stay with you for 24 hours following discharge. - We also recommend that you do not drive, make important decision, drink alcoholic beverages, or take any drugs that were not prescribed by your health care provider for at least 24 hours after your discharge time. Follow any additional instructions given to you from your surgeon. Telephone instructions given to __Tanya__and asked if any additional questions and then verbalized understanding. Patient advised to call surgeon office or pre surgery nurse liaison [phone] if any additional questions.
[2024-10-12 12:35] VITALS: BP 129/87; PULSE 78; RESP 18; TEMP 36.7; O2SAT 99
[2024-10-12] MEDS: LACTATED RINGERS 1,000 ML 30 ML IV CONT (13:00)
[2024-10-12 13:28] LABS: BEDSIDEPREGUCG Negative (Negative)
--- NOTE | 2024-10-12 15:40 | WPDHPUPDATE1 ---
History and Physical Update Update Date/Time: 10/12/24 15:40 History and Physical has been reviewed, including an updated exam of the patient. There are NO changes in the patient's condition. Risks, benefits, and alternatives have been discussed and questions answered. Patient agrees to proceed with procedure.
--- NOTE | 2024-10-12 15:43 | WPDANESEPPF ---
Anes - Initial Pre Proc Eval Procedure: Operation Date: 10/12/24 14:30 Proposed Procedures p Excision Ruptured Sebaceous Cyst Right Chest Wall - Bulmaro Damon MD Date/Time: 10/12/24 15:43 Surgeon: Bulmaro Damon MD Pre Op Diagnosis: ruptured sebaceous cyst right chest wall Patient Data Age: 59 Gender: F Height: 1.55 m Weight: 92.4 kg Last Vital Signs Temp 36.7 C 10/12/24 12:35 Pulse 78 10/12/24 12:35 Resp 18 10/12/24 12:35 BP 129/87 10/12/24 12:35 Pulse Ox 99 10/12/24 12:35 O2 Del Method Room Air 10/12/24 12:35 Allergies Allergy/AdvReac Type Severity Reaction Status Date / Time No Known Allergies Allergy Verified 10/12/24 13:22 Home Medications Medication Instructions Recorded Confirmed Type cholecalciferol (vitamin D3) 25 25 mcg PO DAILY 08/14/24 10/12/24 History mcg (1,000 unit) capsule cephalexin 500 mg tablet 500 mg PO Q8H #20 tabs 09/23/24 10/12/24 Rx semaglutide (weight loss) 2.4 2.4 mg (0.75 mL) subcut WEEKLY #3 10/08/24 10/12/24 Rx mg/0.75 mL subcutaneous pen mL injector (Wegovy) Laboratory Tests 10/12/24 13:26 POC Urine HCG, Qual Negative (Negative) Patient hx anesthesia problems: none Family hx anesthesia problems: none Results Review: All pre-operative results and documents have been reviewed as part of the pre-operative evaluation. [facility] Past Medical History Medical History Colon cancer HTN (hypertension) Obstructive sleep apnea Surgical History Surgical History H/O section x2 H/O: hysterectomy History of appendectomy History of colon resection Hx of tonsillectomy Family History Family History Mother Heart disease Father Dementia Alzheimer disease Social History Social History Social History: Caffeine-tea/coffee Smoking status: Never smoker Alcohol intake: never Substance use type: does not use Do You Feel Safe in your Home?: Yes Lack of Transportation: No Lack of Food: Never True Current Housing: I Have Housing Concerned About Future Housing: No Difficulty Paying Gas/Electric Bills: No Difficulty Paying for Meds: No Currently Unemployed: No Education: Decline to Answer Difficulty w/ Childcare or Family Care: No Living arrangements: with family Spiritual care concerns: No Anes - Eval Final PreProcedure Day of Procedure 10/12/24 15:43 Patient weight: obese Heart: regular rate and rhythm Lungs: clear to auscultation Airway: Mallampati scale class II Neurological: alert and oriented Last oral intake: >/= 8 hours ASA classification: III Emergent: no Anesthetic plan: proceed Anesthesia type and monitoring: general GIVS and standard monitoring Results Review: All pre-operative results and documents have been reviewed as part of the pre-operative evaluation. Informed Consent: The patient's anesthetic plan and its attendant risks and benefits were discussed with the patient/family/POA. Questions were solicited and answers provided to the satisfaction of the patient/family/POA.
[2024-10-12] MEDS: ceFAZolin 2 GM/D5W 50 ML 2 GM/50 ML BAG IVPB (15:51)
[2024-10-12] MEDS: LIDO 1%/EPINEPHRINE 1:100,000 20 ML VIAL 15 ML INFILTRATE (15:58)
[2024-10-12] MEDS: BUPivacaine HCL 0.5% 10 ML AMP 15 ML INFILTRATE (15:59)
[2024-10-12 16:30] VITALS: BP 121/75; PULSE 93; RESP 14; O2SAT 96
--- NOTE | 2024-10-12 16:40 | PM.OP ---
Procedure Note - Brief Procedure Note - Brief Date of procedure: 10/12/24 ruptured sebaceous cyst right chest wall Post-op diagnosis: Same Procedure performed: Excision ruptured sebaceous cyst right chest wall with 5cm intermediate layered wound closure Surgeon: Bulmaro Damon MD Workers Compensation Manager: Alma Kee RN FA Anesthesia: MAC and local Implants: none Estimated blood loss (mL): 5 Drains: No Packing: No Pathology: Yes ( cyst to pathology) Complications: No immediate complications Condition: Stable Disposition: PACU
[2024-10-12 16:45] VITALS: BP 121/75; PULSE 93; RESP 16; O2SAT 100
[2024-10-12 17:00] VITALS: BP 120/82; PULSE 68; RESP 16; O2SAT 100
[2024-10-12 17:19] VITALS: BP 133/85; PULSE 72; RESP 16; O2SAT 100
--- NOTE | 2024-10-13 13:14 | W.PM.PROC2 ---
Procedure Note - Detailed Date of Procedure 10/13/24 Pre-op Diagnosis Ruptured sebaceous cyst right chest wall Post-op Diagnosis Same Procedure Performed Excision right chest wall ruptured sebaceous cyst with 5cm intermediate layered wound closure Surgeon Bulmaro Damon MD Pillow Agent Alma Kee RN FA Anesthesia MAC and Local Indications patient is a 49-year-old female who presented with an infected sebaceous cyst in the right chest wall just at the inframammary fold. It was drained in the office and the infection has now resolved. She presents now for excision of the cyst wall remnants. Findings The cyst measured approximately 2.5x1.5x1.5cm. It was completely excised with an ellipse of tissue encompassing the whole cyst wall. The length of the intermediate layered wound closure was 5cm. Description of Procedure After informed consent was obtained patient brought to the operating room she was placed supine position IV sedation was administered by anesthesia. The area of the right breast and right chest wall was then prepped and draped usual sterile fashion. A time-out was then performed correctly identifying the patient as well as procedure to be performed verifying site marking. She was given perioperative IV antibiotics. 1% lidocaine mixed with 0.5% Marcaine in a 50 50 mixture was then injected around the cyst for local anesthetic effect. I then made a 1st elliptical incision to incorporate the whole cyst wall in the loops of tissue. Dissection was carried with a scalpel down to the dermis of the skin to the underlying subcutaneous fat of the right chest wall. I then completely excised the ellipse of tissue with the chest cyst within it with electrocautery. The cyst was measured and it was 2.5x1.5x1.5cm. It was sent to pathology for examination. The wound was irrigated sterile saline solution hemostasis was good. I then close incision with a 5cm intermediate layered wound closure. Interrupted 3-0 Vicryl sutures were used the subcutaneous tissues in 2 layers. The skin edges were then approximated utilizing a running subcuticular 4 Monocryl suture. The incision was then cleaned the skin glue was applied. The patient tolerated the procedure well no complications. All sponges, needles, and instrument counts were correct at the end procedure. EBL was _5__cc. The patient was awakened and taken to recovery in stable and satisfactory condition. Implants None Estimated Blood Loss 5 Drains No Packing No Pathology Yes ( cyst to pathology) Complications No immediate complications Condition Stable Disposition PACU [facility] Billing Surgery - Charge Forward: Surgery Billing
== END 2024-10-12 17:23 | disposition home or self-care (01) ==
PROVIDERS: PCP Internal Medicine; Visit Provider Surgery
PROC: (CPT 11404; principal; 2024-10-12 14:30)
DX: L72.3 Sebaceous cyst (principal); I10 Essential (primary) hypertension; G47.33 Obstructive sleep apnea (adult) (pediatric); Z85.038 Personal history of other malignant neoplasm of large intestine; Z79.85 Long-term (current) use of injectable non-insulin antidiabetic drugs; Z90.49 Acquired absence of other specified parts of digestive tract; E66.9 Obesity, unspecified; Z68.38 Body mass index [BMI] 38.0-38.9, adult
CPT/HCPCS: 11404; 12032; 88305; A9270; J0690; J1100; J2003; J2004; J2250; J2405; J2704; J3010; J7120